=== PATIENT | female | born 1995 | race American Indian/Alaskan Native ===

== ENCOUNTER 2017-04-16 16:20 | Emergency (ER) | payer MEDICAID ==
[2017-04-16 17:30] VITALS: BP 138/85
[2017-04-16 17:46] LABS: Bacteria,Urine 2+ /HPF (Negative); Bilirubin,Urine NEG (Negative); Blood,Urine NEG (Negative); Ketones,Urine NEG (Negative); Leukocyte Esterase,Urine LG (Negative); Mucus,Urine FEW /HPF; Nitrite,Urine NEG (Negative); Protein,Urine <15 mg/dL mg/dL (Negative); Urobilinogen,Urine < 2.0 mg/dL (<2.0)
[2017-04-16 17:56] LABS: Basophils % (Auto) 0.3 % (0.0-1.8); Eosinophils % (Auto) 2.5 % (0.0-4.3); Hematocrit 37.5 % (30.3-42.9); Hemoglobin 12.4 gm/dl (10.1-14.3); Mean Corpuscular HGB Conc 33 % (30-34); Mean Corpuscular Hemoglobin 30 pg (28-32); Mean Corpuscular Volume 91 fl (79-97); Platelet Count 281 K/mm3 (140-440); Red Blood Count 4.11 M/mm3 (3.65-5.03); Red Cell Distribution Width 13.5 % (13.2-15.2); White Blood Count 11.2 K/mm3 (4.5-11.0)
[2017-04-16 18:16] LABS: Alanine Aminotransferase 8 units/L (7-56); Albumin 4.1 g/dL (3.9-5); Albumin/Globulin Ratio 1.5 %; Alkaline Phosphatase 71 units/L (35-129); Anion Gap 16 mmol/L; Blood Urea Nitrogen 8 mg/dL (7-17); Calcium 8.9 mg/dL (8.4-10.2); Carbon Dioxide 26 mmol/L (22-30); Chloride 102.8 mmol/L (98-107); Glucose 122 mg/dL (65-100); Lipase 31 units/L (13-60); Potassium 4.1 mmol/L (3.6-5.0); Sodium 141 mmol/L (137-145); Total Protein 6.9 g/dL (6.3-8.2)
== END 2017-04-16 19:40 | disposition left against medical advice (07) ==
LOC: ED 16:20
DX: R10.9 Unspecified abdominal pain (principal); Z53.21 Procedure and treatment not carried out due to patient leaving prior to being seen by health care provider
CPT/HCPCS: 36415; 80053; 81001; 81025; 83690; 84702; 84703; 85025; 86850; 86900; 86901

== ENCOUNTER 2018-02-04 11:53 | Emergency (ER) | payer SELFPAY ==
[2018-02-04 12:26] VITALS: BP 115/70
[2018-02-04 12:57] LABS: Basophils % (Auto) 0.6 % (0.0-1.8); Eosinophils # (Auto) 0.2 K/mm3 (0.0-0.4); Eosinophils % (Auto) 2.1 % (0.0-4.3); Hematocrit 39.3 % (30.3-42.9); Hemoglobin 13.6 gm/dl (10.1-14.3); Lymphocytes # (Auto) 1.2 K/mm3 (1.2-5.4); Lymphocytes % (Auto) 14.5 % (13.4-35.0); Mean Corpuscular HGB Conc 35 % (30-34); Mean Corpuscular Hemoglobin 32 pg (28-32); Mean Corpuscular Volume 91 fl (79-97); Monocytes # (Auto) 0.6 K/mm3 (0.0-0.8); Monocytes % (Auto) 7.6 % (0.0-7.3); Platelet Count 294 K/mm3 (140-440); Red Blood Count 4.31 M/mm3 (3.65-5.03); Red Cell Distribution Width 13.3 % (13.2-15.2)
[2018-02-04 13:07] LABS: Bacteria,Urine 1+ /HPF (Negative); Bilirubin,Urine NEG (Negative); Blood,Urine NEG (Negative); Color,Urine Yellow (Yellow); Mucus,Urine FEW /HPF; Protein,Urine <15 mg/dL mg/dL (Negative); Urobilinogen,Urine < 2.0 mg/dL (<2.0)
== END 2018-02-04 20:10 | disposition left against medical advice (07) ==
LOC: ED 11:53
DX: O20.9 Hemorrhage in early pregnancy, unspecified (principal); Z3A.00 Weeks of gestation of pregnancy not specified
CPT/HCPCS: 36415; 81001; 84702; 85025; 86850; 86900; 86901

== ENCOUNTER 2018-06-03 21:54 | Outpatient (CLI) | payer OTHER ==
[2018-06-03 22:48] VITALS: BP 119/71
[2018-06-03] MEDS ORDERED: LACTATED RINGERS 500 ML IV ONE (23:24)
[2018-06-04 00:29] LABS: Amorphous Crystals,Urine 2+; Bacteria,Urine 1+ /HPF (Negative); Bilirubin,Urine NEG (Negative); Blood,Urine NEG (Negative); Color,Urine Yellow (Yellow); Hyaline Casts,Urine 1 /LPF; Protein,Urine <15 mg/dL mg/dL (Negative); Urobilinogen,Urine < 2.0 mg/dL (<2.0)
== END 2018-06-04 00:58 | disposition home or self-care (01) ==
LOC: TRG 21:54
PROVIDERS: ATTEND Obstetrics & Gynecology
DX: O47.02 False labor before 37 completed weeks of gestation, second trimester (principal); Z3A.23 23 weeks gestation of pregnancy
CPT/HCPCS: 81001; 87086

== ENCOUNTER 2019-06-04 11:42 | Emergency (ER) | payer OTHER ==
[2019-06-04 12:08] VITALS: BP 148/91
--- NOTE | 2019-06-04 12:08 | Event Note ---
ED Screening Note Date of service: 06/04/19 Time: 12:05 ED Screening Note: This is a 24 y.o. F. that presents to the ER with swelling and pain to right ankle. Patient think she twisted ankle for 1 day. Nonsmoker LMP months on depovera This initial assessment/diagnostic orders/clinical plan/treatment(s) is/are subject to change based on patients health status, clinical progression and re- assessment by fellow clinical providers in the ED. Further treatment and workup at subsequent clinical providers discretion. Patient/guardian urged not to elope from the ED as their condition may be serious if not clinically assessed and managed. Initial orders include: XR right ankle
--- NOTE | 2019-06-04 13:12 | XRay Report ---
RIGHT ANKLE 4 VIEW(S) INDICATION / CLINICAL INFORMATION: swelling and pain, injury COMPARISON: None available. FINDINGS: BONES / JOINT(S): Subtle lucency through the tip of the anterior process of the calcaneus as seen on the lateral view. No other fracture identified. No significant arthritis. No ankle joint effusion. SOFT TISSUES: No focal soft tissue swelling. ADDITIONAL FINDINGS: None. IMPRESSION: 1. Possible nondisplaced fracture of the tip of the anterior process of the calcaneus. Clinical corre lation is needed. If there is midfoot pain, right ankle CT may be helpful for further evaluation. Signer Name: Faisal Tate MD Signed: 06/04/2019 1:07 PM Workstation Name: [id number]
[2019-06-04] MEDS ORDERED: IBUPROFEN PO ONE (13:46)
[2019-06-04] MEDS ORDERED: IBUPROFEN ONE (13:50)
--- NOTE | 2019-06-04 14:26 | Emergency Department Report ---
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 Since that time. She reports worsening pain, which occurs with palpation and attempted to ambulate. She can support her weight partially. She reports no no fever, chills, sweats. No chest pain or palpitations. No calf swelling or calf pain. MD Complaint: ankle injury -: Gradual Injury: Ankle: Right Type of Injury: inversion Place: home Worsens With: weight bearing, movement, palpation Associated Symptoms: able to partially bear weight - Related Data Previous Rx's Medication Instructions Recorded Last Taken Type Acetaminophen/Codeine [Tylenol #3] 1 tab PO Q6H PRN #15 tab 06/04/19 Unknown Rx Ketorolac [Toradol] 10 mg PO Q6H PRN #15 tablet 06/04/19 Unknown Rx Allergies Allergy/AdvReac Type Severity Reaction Status Date / Time No Known Allergies Allergy Verified 06/04/19 11:46 ED Review of Systems ROS: Stated complaint: RT FOOT INJURY Other details as noted in HPI Comment: All other systems reviewed and negative ED Past Medical Hx - Past Medical History Hx Hypertension: No Hx Diabetes: No Hx Deep Vein Thrombosis: No Hx Renal Disease: No Hx Sickle Cell Disease: No Hx Seizures: No Hx Asthma: No Hx HIV: No Additional medical history: Vaginal delivery - Surgical History Past Surgical History?: No - Social History Smoking Status: Never Smoker Substance Use Type: None - Medications Home Medications: Home Medications Medication Instructions Recorded Confirmed Last Taken Type Acetaminophen/Codeine [Tylenol #3] 1 tab PO Q6H PRN #15 tab 06/04/19 Unknown Rx Ketorolac [Toradol] 10 mg PO Q6H PRN #15 tablet 06/04/19 Unknown Rx ED Physical Exam - General Limitations: No Limitations General appearance: alert, in no apparent distress - Head Head exam: Present: atraumatic, normocephalic - Eye Eye exam: Present: normal appearance, PERRL, EOMI - ENT ENT exam: Present: mucous membranes moist - Neck Neck exam: Present: normal inspection, full ROM - Respiratory Respiratory exam: Present: normal lung sounds bilaterally. Absent: respiratory distress, rales, rhonchi, chest wall tenderness, accessory muscle use - Cardiovascular Cardiovascular Exam: Present: regular rate, normal rhythm. Absent: systolic murmur, diastolic murmur, rubs, gallop - GI/Abdominal GI/Abdominal exam: Present: soft, normal bowel sounds. Absent: tenderness, guarding, hyperactive bowel sounds, hypoactive bowel sounds - Extremities Exam Extremities exam: Present: normal inspection, tenderness. Absent: pedal edema, joint swelling, calf tenderness - Expanded Lower Extremity Exam Right Upper Leg exam: Present: normal inspection, full ROM Knee exam: Present: normal inspection, full ROM Lower Leg exam: Present: normal inspection, full ROM Ankle exam: Present: tenderness (tender to malleoar region ), anterior draw sign (normal drawer test). Absent: laceration, ecchymosis, crepidus, dislocation, erythema - Back Exam Back exam: Present: normal inspection - Neurological Exam Neurological exam: Present: alert, oriented X3 - Psychiatric Psychiatric exam: Present: normal affect, normal mood - Skin Skin exam: Present: warm, dry, intact, normal color. Absent: rash ED Course Vital Signs 06/04/19 12:06 Temperature 98.4 F Pulse Rate 124 H Respiratory 16 Rate Blood Pressure 148/91 [Left] O2 Sat by Pulse 99 Oximetry Critical care attestation.: If time is entered above; I have spent that time in minutes in the direct care of this critically ill patient, excluding procedure time. ED Disposition Clinical Impression: Calcaneal fracture Disposition: DC- TO HOME OR SELFCARE Is pt being admited?: No Does the pt Need Aspirin: No Condition: Stable Instructions: Foot Fracture in Adults (ED) Prescriptions: Ketorolac [Toradol] 10 mg PO Q6H PRN #15 tablet PRN Reason: Pain Acetaminophen/Codeine [Tylenol #3] 1 tab PO Q6H PRN #15 tab PRN Reason: Pain Referrals: JESUS MILLER MD [Primary Care Provider] - 3-5 Days NOHELIA CAIN MD [Staff Physician] - 3-5 Days
== END 2019-06-04 14:45 | disposition home or self-care (01) ==
LOC: ED 11:42
DX: S92.001A Unspecified fracture of right calcaneus, initial encounter for closed fracture (principal); Z79.899 Other long term (current) drug therapy; W18.30XA Fall on same level, unspecified, initial encounter; Y93.89 Activity, other specified; Y92.098 Other place in other non-institutional residence as the place of occurrence of the external cause; Y99.8 Other external cause status
CPT/HCPCS: 99283

== ENCOUNTER 2019-06-29 10:49 | Emergency (ER) | payer OTHER ==
[2019-06-29 10:56] VITALS: BP 151/89
[2019-06-29] MEDS ORDERED: ZOFRAN IV ONE (11:34)
[2019-06-29] MEDS ORDERED: NACL 0.9% 1000 ML 1,000 ML IV ONE (11:34)
--- NOTE | 2019-06-29 11:36 | Emergency Department Report ---
ED N/V/D HPI - General Chief complaint: Abdominal Pain Stated complaint: STOMACH VIRUS/DIARRHEA/HEADACHE Source: patient Mode of arrival: Ambulatory Limitations: No Limitations - History of Present Illness Initial comments: Patient is a 24-year-old female that presents emergency room with complaints of abdominal pain and nausea vomiting 5 days. Patient also complaining of kaykay rrhea. Patient complains of bodyaches. Patient states her pain is a 7 out of 10 and is better with rest and worse with eating and movement and vomiting. Patient states her last. Was in November but is on Depo-Provera. Patient states the pain is in her left lower quadrant just lateral to her umbilicus. She denies fever. She denies blood in her stool and her vomitus. MD complaint: nausea, vomiting, diarrhea, abdominal pain -: Sudden, days(s) Description of Vomiting: watery Description of Diarrhea: water Associated Abdominal Pain: Yes Location: LLQ Severity: moderate, severe Pain Scale: 7 Quality: aching Consistency: constant Improves with: bowel movement, rest Worsens with: eating, vomiting, movement Context: sick contacts Associated Symptoms: loss of appetite, nausea/vomiting. denies: myalgias, chest pain, cough, diaphoresis, fever/chills, headaches, malaise, rash, dysuria, shortness of breath, syncope, weakness - Related Data Previous Rx's Medication Instructions Recorded Last Taken Type Acetaminophen/Codeine [Tylenol #3] 1 tab PO Q6H PRN #15 tab 06/04/19 Unknown Rx Ketorolac [Toradol] 10 mg PO Q6H PRN #15 tablet 06/04/19 Unknown Rx Ondansetron [Zofran Odt] 4 mg PO Q6HR PRN #15 tab.rapdis 06/29/19 Unknown Rx Allergies Allergy/AdvReac Type Severity Reaction Status Date / Time No Known Allergies Allergy Verified 06/04/19 11:46 ED Review of Systems ROS: Stated complaint: STOMACH VIRUS/DIARRHEA/HEADACHE Other details as noted in HPI Constitutional: denies: chills, fever Eyes: denies: eye pain, eye discharge, vision change ENT: denies: ear pain, throat pain Respiratory: denies: cough, shortness of breath, wheezing Cardiovascular: denies: chest pain, palpitations Endocrine: no symptoms reported Gastrointestinal: abdominal pain, nausea, vomiting, diarrhea. denies: constipation, hematemesis, melena, hematochezia Genitourinary: denies: urgency, dysuria, discharge Musculoskeletal: denies: back pain, joint swelling, arthralgia Skin: denies: rash, lesions Neurological: denies: headache, weakness, paresthesias Psychiatric: denies: anxiety, depression Hematological/Lymphatic: denies: easy bleeding, easy bruising ED Past Medical Hx - Past Medical History Previous Medical History?: No Hx Hypertension: No Hx Diabetes: No Hx Deep Vein Thrombosis: No Hx Renal Disease: No Hx Sickle Cell Disease: No Hx Seizures: No Hx Asthma: No Hx HIV: No Additional medical history: Vaginal delivery - Surgical History Past Surgical History?: No - Family History Family history: no significant - Social History Smoking Status: Never Smoker Substance Use Type: None - Medications Home Medications: Home Medications Medication Instructions Recorded Confirmed Last Taken Type Acetaminophen/Codeine [Tylenol #3] 1 tab PO Q6H PRN #15 tab 06/04/19 Unknown Rx Ketorolac [Toradol] 10 mg PO Q6H PRN #15 tablet 06/04/19 Unknown Rx Ondansetron [Zofran Odt] 4 mg PO Q6HR PRN #15 tab.rapdis 06/29/19 Unknown Rx ED Physical Exam - General Limitations: No Limitations General appearance: alert, in no apparent distress - Head Head exam: Present: atraumatic, normocephalic - Eye Eye exam: Present: normal appearance - ENT ENT exam: Present: mucous membranes moist - Neck Neck exam: Present: normal inspection - Respiratory Respiratory exam: Present: normal lung sounds bilaterally. Absent: respiratory distress - Cardiovascular Cardiovascular Exam: Present: regular rate, normal rhythm. Absent: systolic murmur, diastolic murmur, rubs, gallop - GI/Abdominal GI/Abdominal exam: Present: soft, normal bowel sounds. Absent: distended, tenderness, guarding - Extremities Exam Extremities exam: Present: normal inspection - Back Exam Back exam: Present: normal inspection - Neurological Exam Neurological exam: Present: alert, oriented X3 - Psychiatric Psychiatric exam: Present: normal affect, normal mood - Skin Skin exam: Present: warm, dry, intact, normal color. Absent: rash ED Course Vital Signs 06/29/19 06/29/19 10:54 12:04 Temperature 98.9 F Pulse Rate 97 H Respiratory 18 16 Rate Blood Pressure 151/89 O2 Sat by Pulse 100 Oximetry - Reevaluation(s) Reevaluation #1: Discussed results with patient. Patient states she is not nauseated. Patient will be given a by mouth challenge. 06/29/19 12:51 Reevaluation #2: She tolerated by mouth challenge. I discussed all results with patient. I discussed plan of care with patient. Patient agrees with plan of care. Patient is stable for discharge. Patient will be discharged home. Patient given discharge instructions. Patient voiced understanding of discharge instructions 06/29/19 13:07 ED Medical Decision Making - Lab Data Result diagrams: 06/29/19 11:26 06/29/19 11:26 - Medical Decision Making Patient is a 24-year-old female that presents emergency room with complaints of nausea vomiting and abdominal pain. Patient's symptoms secondary to viral gastroenteritis. Patient responded well to treatment. Patient tolerate by mouth intake. Patient's labs unremarkable. Patient given fluids and antiemetics in the ER. Patient stable for discharge. Patient discharged home. - Differential Diagnosis gastroenteritis. Abdominal pain. Nausea vomiting diarrhea. Critical care attestation.: If time is entered above; I have spent that time in minutes in the direct care of this critically ill patient, excluding procedure time. ED Disposition Clinical Impression: Gastroenteritis Nausea & vomiting Qualifiers: Vomiting type: unspecified Vomiting Intractability: non-intractable Qualified Code(s): R11.2 - Nausea with vomiting, unspecified Abdominal pain Qualifiers: Abdominal location: unspecified location Qualified Code(s): R10.9 - Unspecified abdominal pain Disposition: - TO HOME OR SELFCARE Is pt being admited?: No Does the pt Need Aspirin: No Condition: Stable Instructions: Abdominal Pain (ED), Acute Nausea and Vomiting (ED), Gastroenteritis (ED) Additional Instructions: Patient to follow-up with primary care in 2-3 days. Patient to increase water. Patient to eat or brat diet. Patient's take Tylenol or ibuprofen when necessary for pain. Patient to rest.. Patient to return to ER if condition worsens. Prescriptions: Ondansetron [Zofran Odt] 4 mg PO Q6HR PRN #15 tab.rapdis PRN Reason: Nausea And Vomiting Referrals: PRIMARY CARE, [Referring] - 3-5 Days Time of Disposition: 13:10
[2019-06-29 11:42] LABS: Hematocrit 39.2 % (30.3-42.9); Hemoglobin 12.9 gm/dl (10.1-14.3); Mean Corpuscular HGB Conc 33 % (30-34); Mean Corpuscular Volume 89 fl (79-97); Platelet Count 260 K/mm3 (140-440); Red Cell Distribution Width 15.5 % (13.2-15.2)
[2019-06-29 11:52] LABS: BUN/Creatinine Ratio 9; Blood Urea Nitrogen 8 mg/dL (7-17); Hemolysis Index 15
[2019-06-29 11:54] LABS: Bacteria,Urine 1+ /HPF (Negative); Bilirubin,Urine NEG (Negative); Blood,Urine LG (Negative); Calcium Oxalate Crystals,Urine 3+; Color,Urine Yellow (Yellow); Mucus,Urine 3+ /HPF; Urobilinogen,Urine < 2.0 mg/dL (<2.0)
[2019-06-29 11:56] LABS: HCG Qualitative,Urine Negative (Negative)
[2019-06-29 12:04] LABS: Alanine Aminotransferase < 5 units/L (7-56)
== END 2019-06-29 13:27 | disposition home or self-care (01) ==
LOC: ED 10:49
DX: K52.9 Noninfective gastroenteritis and colitis, unspecified (principal); Z79.899 Other long term (current) drug therapy
CPT/HCPCS: 36415; 80053; 81001; 81025; 85027; 96361; 96374; 99283; J2405; J7030

== ENCOUNTER 2021-04-22 01:42 | Emergency (ER) | payer OTHER ==
[2021-04-22 01:51] VITALS: BP 146/93
[2021-04-22] MEDS ORDERED: ACETAMINOPHEN 325 MG TAB PO ONE (02:43)
== END 2021-04-22 02:00 | disposition left against medical advice (07) ==
LOC: ED 01:42
DX: M54.2 Cervicalgia (principal); Z53.21 Procedure and treatment not carried out due to patient leaving prior to being seen by health care provider